=== PATIENT | female | born 1980 ===

== ENCOUNTER 2019-03-08 13:26 | Emergency (ER) | payer MEDICAID ==
[2019-03-08 13:26] VITALS: BMI 23.8
[2019-03-08 14:42] VITALS: RESP 18; TEMP 98.5
[2019-03-08] MEDS ORDERED: Sodium Chloride 0.9% 1,000 ML IV STA (15:29)
--- NOTE | 2019-03-08 15:42 | ED PDOC ---
Arrival/HPI - General Chief Complaint: Back Pain Time Seen by Provider: 03/08/19 14:49 Historian: Patient - History of Present Illness Narrative History of Present Illness (Text): 03/08/19 15:36 38 year old F with pmh of hypothyroid presents complaining of left flank pain since today. Patient uses sign language, paper and pen was used to communicate. Patient denies any rash, problems urinating, fevers, chills, headache, dizzin ess, chest pain, shortness of breath, cough, abdominal pain, nausea, vomiting, or any other complaint. Symptom Onset: Sudden Symptom Course: Unchanged Activities at Onset: Light Past Medical History - Provider Review Nursing Documentation Reviewed: Yes Primary Care Provider: Non [facility] Provider, - Past Medical History Past Medical History: No Previous - Cardiac Hx Cardiac Disorders: No - Pulmonary Hx Respiratory Disorders: No - Neurological Hx Neurological Disorder: No - HEENT Hx Deafness: Yes - Endocrine/Metabolic Hx Hypothyroidism: Yes - Hematological/Oncological Hx Anemia: Yes - Integumentary Hx Dermatological Disorder: No - Musculoskeletal/Rheumatological Hx Musculoskeletal Disorders: No - Gastrointestinal Hx Gastrointestinal Disorders: No - Psychiatric Hx Depression: No Hx Substance Use: No - Surgical History Hx Cholecystectomy: Yes - Anesthesia Hx Anesthesia: Yes Hx Anesthesia Reactions: No Hx Malignant Hyperthermia: No - Suicidal Assessment Feels Threatened In Home Enviroment: No Family/Social History - Physician Review Nursing Documentation Reviewed: Yes Family/Social History: Unknown Family HX Smoking Status: Never Smoked Hx Alcohol Use: No Hx Substance Use: No Allergies/Home Meds Allergies/Adverse Reactions: Allergies No Known Allergies Allergy (Verified 03/08/19 14:41) Home Medications: Home Meds Medication Instructions Recorded Confirmed Levothyroxine [Synthroid] 75 mcg PO DAILY 03/08/19 03/08/19 Review of Systems - Physician Review All systems were reviewed & negative as marked: Yes - Review of Systems Gastrointestinal: absent: Abdominal Pain, Vomiting Physical Exam - Physical Exam Narrative Physical Exam (Text): 03/08/19 15:44 Constitutional: No acute distress. Head: Normocephalic. Atraumatic. Eyes: PERRL. ENT: Moist mucous membranes. Neck: Supple. Cardiovascular: Regular rate. Chest: No tenderness. Respiratory: Clear to auscultation bilaterally. GI: Soft. Nontender. Nondistended. Back: No CVA tenderness. Musculoskeletal: No tenderness or swelling of extremities. Skin: No rash. Neurologic: Alert, no focal deficit. Vital Signs Reviewed: Yes Vital Signs Temp Pulse Resp BP Pulse Ox 03/08/19 14:23 98.5 F 92 H 18 134/86 98 Temperature: Afebrile Blood Pressure: Normal Pulse: Regular Respiratory Rate: Normal Appearance: Positive for: Well-Appearing, Non-Toxic, Comfortable Pain Distress: Mild Mental Status: Positive for: Alert and Oriented X 3 Medical Decision Making ED Course and Treatment: 03/08/19 15:42 Impression: 38 year old F presents complaining of left flank pain since today Plan: -- Abd & Pelvis CT w/ IV contrast -- Toradol -- Labs -- HCG -- Urinalysis -- Urine culture -- Reassess and disposition Progress Notes: -- Reassessed patient: has known anemia and admits Hgb of 8.4 is baseline for her. Signed out to ED night team at change of shift pending CT. - RAD Interpretation Radiology Orders: 03/08/19 15:29 ABD & PELVIS IV CONTRAST ONLY [CT] Stat - Medication Orders Current Medication Orders: Sodium Chloride (Sodium Chloride 0.9%) 1,000 mls @ 999 mls/hr IV .Q1H1M STA Stop: 03/08/19 16:29 Discontinued Medications Ketorolac Tromethamine (Toradol) 30 mg IVP STAT STA Stop: 03/08/19 15:30 - Scribe Statement The provider has reviewed the documentation as recorded by the Ada Segovia All medical record entries made by the Scribe were at my direction and personally dictated by me. I have reviewed the chart and agree that the record accurately reflects my personal performance of the history, physical exam, medical decision making, and the department course for this patient. I have also personally directed, reviewed, and agree with the discharge instructions and disposition. Disposition/Present on Arrival - Present on Arrival Any Indicators Present on Arrival: No History of DVT/PE: No History of Uncontrolled Diabetes: No Urinary Catheter: No History of Decub. Ulcer: No History Surgical Site Infection Following: None - Disposition Have Diagnosis and Disposition been Completed?: No Diagnosis: Flank pain Disposition Time: 20:00 Condition: STABLE Additional Instructions: Avois strenuous physical activity/no lifting heavy objects/take meds as prescribed/follow up with your doctor this week Prescriptions: traMADol/Acetaminophen [Ultracet 325 MG-37.5 MG] 1 tab PO Q6 PRN #10 tab PRN Reason: Pain Forms: [employer] (Uzbek)
[2019-03-08 16:28] LABS: BASO # 0.11 K/mm3 (0.0-2.0); EOS # 0.2 (0.0-0.7); EOS % 3.3 % (1.5-5.0); HEMOGLOBIN 8.4 g/dL (12.0-16.0); LYMPH % 36.3 % (22.0-35.0); MEAN CELL VOLUME 69.1 fl (80.0-105.0); MEAN CORPUSCULAR HEMOGLOBIN 19.8 pg (25.0-35.0); MEAN CORPUSCULAR HGB CONC 28.7 g/dl (31.0-37.0); MONO # 0.4 (0.1-0.6); MONO % 7.7 % (1.0-6.0); PLATELET COUNT 207 10^3/uL (120.0-450.0); RBC 4.24 10^6/uL (3.5-6.1); RED CELL DISTRIBUTION WIDTH 18.3 % (11.5-14.5); WHITE BLOOD COUNT 5.4 10^3/uL (4.5-11.0)
[2019-03-08 16:29] LABS: URINE BILIRUBIN NEGATIVE (NEGATIVE); URINE BLOOD NEGATIVE (NEGATIVE); URINE GLUCOSE (UA) NEGATIVE (NEGATIVE); URINE LEUKOCYTE ESTERASE SMALL Leu/uL (NEGATIVE); URINE PROTEIN NEGATIVE mg/dL (<30 mg/dL); URINE UROBILINOGEN 0.2 E.U./dL (<1 E.U./dL)
[2019-03-08 16:32] LABS: URINE APPEARANCE CLEAR (CLEAR); URINE COLOR STRAW (YELLOW)
[2019-03-08 16:41] LABS: HCG,QUALITATIVE URINE NEGATIVE (NEGATIVE); URINE BACTERIA FEW /hpf
[2019-03-08 19:04] LABS: ALB/GLOB RATIO 1.5 (1.1-1.8); ALT/SGPT 24 U/L (7-56); AST/SGOT 24 U/L (14-36); BLOOD UREA NITROGEN 15 mg/dL (7-21); CALCIUM 8.5 mg/dL (8.4-10.5); GFR NON-AFRICAN AMERICAN > 60; LIPASE 249 U/L (23-300)
[2019-03-08] MEDS ORDERED: Iohexol 350 MG/100 ML VIAL ONE (20:04)
--- NOTE | 2019-03-08 20:18 | ED PDOC ---
Physical Exam Vital Signs Temp Pulse Resp BP Pulse Ox 03/08/19 17:59 78 18 128/65 98 03/08/19 16:25 86 18 132/74 98 03/08/19 14:23 98.5 F 92 H 18 134/86 98 Medical Decision Making ED Course and Treatment: 03/08/19 20:00 Case endorsed to me by Dr. Llanos, pending CT scan, re-evaluation, and disposition. Pt, whose past medical history includes hypothyrodism,anemia presented initially for left flank pain.Patient when questioned through [employer] dra[employer] ated she had been lifting her child and felt a pull to the back area.She denies any urinary complaints.No andominal pain.No N/V or diarrhea. 03/08/19 21:40 CT Abdomen and Pelvis: LUNG BASES: The lung bases appear clear. No pleural effusions are seen. LIVER: Unremarkable. GALLBLADDER AND BILE DUCTS: Status post cholecystectomy. No biliary ductal dilatation is evident. PANCREAS: Unremarkable. SPLEEN: Unremarkable. ADRENAL GLANDS: Unremarkable. KIDNEYS, URETERS, AND BLADDER: The kidneys appear within normal limits. There is no hydronephrosis or hydroureter. No urinary calculi are seen. The urinary bladder appeared normal in size and configuration. STOMACH AND BOWEL: Unremarkable appearance of the stomach. No evidence of bowel obstruction. There is mucosal wall thickening of the small intestinal tract with fluid identified in its lumen thought compatible with diffuse enteritis. Infectious or inflammatory etiologies are thought most likely. No evidence suggesting colitis. APPENDIX: No evidence of acute appendicitis on CT examination. PERITONEUM: Minimal free fluid is seen in the right posterior cul-de-sac. No free air. LYMPH NODES: No lymphadenopathy is evident. REPRODUCTIVE: A 1.8 cm right ovarian cyst is identified. Otherwise, unremarkable as visualized. VASCULATURE: No evidence of abdominal aortic aneurysm. BONES: No aggressive appearing osseous lesion. No acute osseous pathology evident. IMPRESSION: 1. Evidence of diffuse enteritis. 2. Status post cholecystectomy. 3. 1.8 cm right ovarian cyst. 4. Minimal free fluid in the right posterior cul-de-sac. Electronically signed on March 08, 2019 9:21:34 PM EDT by: Gaudencio Herndon M.D., M.B.A., Certified By [employer] Trained MRI and CT Specialist 03/08/19 22:01 - Lab Interpretations Lab Results: Total Bilirubin 0.2 mg/dL (0.2-1.3) 03/08/19 18:16 AST 24 U/L (14-36) 03/08/19 18:16 ALT 24 U/L (7-56) 03/08/19 18:16 Alkaline Phosphatase 50 U/L (38-126) 03/08/19 18:16 Total Protein 6.7 g/dL (5.8-8.3) 03/08/19 18:16 Albumin 4.0 g/dL (3.0-4.8) 03/08/19 18:16 Globulin 2.7 gm/dL 03/08/19 18:16 Albumin/Globulin Ratio 1.5 (1.1-1.8) 03/08/19 18:16 Lipase 249 U/L (23-300) 03/08/19 18:16 Urine Color Straw (YELLOW) 03/08/19 16:00 Urine Appearance Clear (CLEAR) 03/08/19 16:00 Urine pH 6.0 (4.7-8.0) 03/08/19 16:00 Ur Specific Herrick 1.020 (1.005-1.035) 03/08/19 16:00 Urine Protein Negative mg/dL (<30 mg/dL) 03/08/19 16:00 Urine Glucose (UA) Negative mg/dL (NEGATIVE) 03/08/19 16:00 Urine Ketones Negative mg/dL (NEGATIVE) 03/08/19 16:00 Urine Blood Negative (NEGATIVE) 03/08/19 16:00 Urine Nitrate Negative (NEGATIVE) 03/08/19 16:00 Urine Bilirubin Negative (NEGATIVE) 03/08/19 16:00 Urine Urobilinogen 0.2 E.U./dL (<1 E.U./dL) 03/08/19 16:00 Ur Leukocyte Esterase Small Lorrie/uL (NEGATIVE) H 03/08/19 16:00 Urine RBC None /hpf (0-2) 03/08/19 16:00 Urine WBC 2 - 5 /hpf (0-6) 03/08/19 16:00 Ur Epithelial Cells 3 - 4 /hpf (0-5) 03/08/19 16:00 Urine Bacteria Few /hpf (NONE) 03/08/19 16:00 Urine HCG, Qual Negative (NEGATIVE) 03/08/19 16:00 Urine HCG, Qual Negative (NEGATIVE) 03/08/19 16:00 - RAD Interpretation Radiology Orders: 03/08/19 15:29 ABD & PELVIS IV CONTRAST ONLY [CT] Stat Supervisor [employer]: Radiologist - Medication Orders Current Medication Orders: Discontinued Medications Sodium Chloride (Sodium Chloride 0.9%) 1,000 mls @ 999 mls/hr IV .Q1H1M STA Stop: 03/08/19 16:29 Last Admin: 03/08/19 15:38 Dose: 999 mls/hr eMAR Start Stop Document 03/08/19 15:38 [place] (Rec: 03/08/19 15:38 [place] [email or web address]) Intravenous Solution Start Date 03/08/19 Start Time 15:38 End Date 03/08/19 End time 16:39 Total Infusion Time 61 Ketorolac Tromethamine (Toradol) 30 mg IVP STAT STA Stop: 03/08/19 15:30 Last Admin: 03/08/19 15:37 Dose: 30 mg MAR Pain Assessment Document 03/08/19 15:37 [place] (Rec: 03/08/19 15:37 [place] [facility] [email or web address]) Pain Reassessment Is this a pain reassessment? No Sleep Is patient sleeping during reassessment? No Presence of Pain Presence of Pain Yes Pain Scale Used Protocol: PSCALES Pain Scale Used Numeric Location Left, Right or Bilateral Left Pain Location Body Site Back Description Intensity of Pain at present 6 IVP Administration Document 03/08/19 15:37 [place] (Rec: 03/08/19 15:37 [place] [email or web address]) Charges for Administration # of IVP Administrations 1 Disposition/Present on Arrival - Present on Arrival Any Indicators Present on Arrival: No History of DVT/PE: No History of Uncontrolled Diabetes: No Urinary Catheter: No History of Decub. Ulcer: No History Surgical Site Infection Following: None - Disposition Have Diagnosis and Disposition been Completed?: Yes Diagnosis: Muscle strain Disposition: HOME/ ROUTINE Disposition Time: 22:01 Patient Plan: Discharge Condition: STABLE Discharge Instructions (ExitCare): Muscle Strain (DC) Additional Instructions: Avois strenuous physical activity/no lifting heavy objects/take meds as prescribed/follow up with your doctor this week Prescriptions: traMADol/Acetaminophen [Ultracet 325 MG-37.5 MG] 1 tab PO Q6 PRN #10 tab PRN Reason: Pain Forms: [employer] (Kiswahili)
[2019-03-08 20:49] VITALS: O2SAT 100
[2019-03-08 22:05] VITALS: BP 121/68; PULSE 68
--- NOTE | 2019-03-09 08:54 | CT ---
Date of service: 03/08/2019 PROCEDURE: CT abdomen and pelvis HISTORY: Left sided back pain, no CVA tenderness COMPARISON: No prior study available comparison TECHNIQUE: Contiguous axial images of the abdomen and pelvis performed following intravenous injection of approximately 98 cc Omnipaque 350 contrast material. Additional 2D sagittal and coronal reformats generated. Radiation dose: Total exam DLP = 317.9 mGy-cm. This CT exam was performed using one or more of the following dose reduction techniques: Automated exposure control, adjustment of the mA and/or kV according to patient size, and/or use of iterative reconstruction technique. FINDINGS: LOWER THORAX: Mild passive/dependent type atelectasis both posterior lower lung reed. Heart size is upper limits of normal/borderline enlarged. No significant pericardial effusion. There is a tiny hiatal hernia. LIVER: Liver exhibits normal size measuring 15 point 4 cm in CC dimension. Minor diffuse fatty hepatic infiltration felt to be present. Portal and splenic veins are opacified. No obvious hepatic mass collection or calcification. No significant intrahepatic ductal dilatation. GALLBLADDER AND BILE DUCTS: Cholecystectomy.. PANCREAS: Unremarkable. No mass. No ductal dilatation. SPLEEN: Unremarkable. No splenomegaly. Exhibits normal size and attenuation pattern without mass collection or calcification. ADRENALS: There are no adrenal lesions. KIDNEYS AND URETERS: Kidneys demonstrate symmetric nephrograms. No evidence of nephrolithiasis or hydronephrosis. BLADDER: Urinary bladder is incompletely distended with slight thick-walled appearance. Correlation with urinalysis recommended. REPRODUCTIVE: Unremarkable as visualized. There is a small approximately 13 mm x 10 mm right adnexal cyst. There is a tiny amount of free fluid seen in the cul de sac APPENDIX: Normal appendix. BOWEL: Evaluation of the bowel is somewhat limited due to the lack of oral contrast material. Stomach is incompletely distended with slight thick-walled appearance. Visualized loops of small bowel exhibit normal contour and caliber. No evidence of acute mechanical small bowel obstruction. There is a moderately large amount of stool in the cecum at ascending and transverse colon consistent with mild fecal retention/constipation.. Note made of a metallic clip adjacent to the lateral wall of the mid-distal transverse colon which presumably has fallen into this location from prior cholecystectomy. PERITONEUM: Unremarkable. No fluid collection. No free air. Small fat containing umbilical hernia. LYMPH NODES: Unremarkable. No enlarged lymph nodes. VASCULATURE: Unremarkable. No aortic aneurysm. No aortic atherosclerotic calcification or mural plaque present. BONES: There is a mild dextroscoliosis centered at the L1-L2 level. OTHER FINDINGS: None. IMPRESSION: Cholecystectomy. Minor fatty hepatic infiltration. Findings consistent with constipation. Small right adnexal cyst as above. Small amount of free fluid seen in cul-de-sac.
== END 2019-03-08 22:13 | disposition home or self-care (01) ==
LOC: ED 13:26
DX: R10.9 Unspecified abdominal pain (principal); T14.8XXA Other injury of unspecified body region, initial encounter; X58.XXXA Exposure to other specified factors, initial encounter; E03.9 Hypothyroidism, unspecified; D64.9 Anemia, unspecified; Z90.49 Acquired absence of other specified parts of digestive tract
CPT/HCPCS: 74177; 80053; 81001; 81025; 83690; 84703; 85025; 87086; 96361; 96374; 99284; J1885; J7030; Q9967